=== PATIENT | male | born 1980 | race African-American/Black ===

== ENCOUNTER 2021-04-09 16:16 | Emergency (ER) | payer BC, OTHER ==
[2021-04-09 16:43] VITALS: TEMP 98.3
--- NOTE | 2021-04-09 17:21 | ED ---
Headache HPI - General Chief Complaint: Headache Stated Complaint: Headache Time Seen by Provider: 04/09/21 17:06 Source: patient, RN notes reviewed Mode of arrival: ambulatory Limitations: no limitations - History of Present Illness Initial Comments: Is a 40-year-old male presents emergency Department with chief complaint of headaches. Patient's been having frequent headaches last 2 weeks. Denies any change in medications. Denies any neck pain. Patient states he was diagnosed with cluster headaches in the past these feels different. He states he wakes up from after work states she has taken ibuprofen which alleviated symptoms has occasional nausea without vomiting no focal weakness no fevers or chills no blurred vision no other complaints. - Related Data Home Medications Medication Instructions Recorded Confirmed No Known Home Medications 04/21/16 04/21/16 Allergies Allergy/AdvReac Type Severity Reaction Status Date / Time No Known Allergies Allergy Verified 04/09/21 16:43 Review of Systems ROS Statement: Those systems with pertinent positive or pertinent negative responses have been documented in the HPI. ROS Other: All systems not noted in ROS Statement are negative. Past Medical History Past Medical History: Hypertension Additional Past Medical History / Comment(s): "migraines" History of Any Multi-Drug Resistant Organisms: None Reported Past Surgical History: Orthopedic Surgery Past Psychological History: Schizophrenia Smoking Status: Current every day smoker Past Alcohol Use History: Occasional Past Drug Use History: Marijuana General Exam Limitations: no limitations General appearance: alert, in no apparent distress Head exam: Present: atraumatic, normocephalic, normal inspection Eye exam: Present: normal appearance, PERRL, EOMI. Absent: scleral icterus, conjunctival injection, periorbital swelling ENT exam: Present: normal exam, normal oropharynx, mucous membranes moist Neck exam: Present: normal inspection, full ROM. Absent: tenderness, meningismus, lymphadenopathy Respiratory exam: Present: normal lung sounds bilaterally. Absent: respiratory distress, wheezes, rales, rhonchi, stridor Cardiovascular Exam: Present: regular rate, normal rhythm, normal heart sounds. Absent: systolic murmur, diastolic murmur, rubs, gallop, clicks Neurological exam: Present: alert, oriented X3, CN II-XII intact, reflexes normal. Absent: motor sensory deficit Skin exam: Present: warm, dry, intact, normal color. Absent: rash Course Vital Signs 06/16/21 16:39 Temperature 98.3 F Pulse Rate 84 Respiratory 20 Rate Blood Pressure 126/85 O2 Sat by Pulse 95 Oximetry Medical Decision Making - Medical Decision Making 32-year-old male presents emergency from for frequent headaches. Symptoms seemed related to work and stress as this is when symptoms started. Patient CT is negative. Patient will follow-up with urology return parameters were discussed. Disposition Clinical Impression: Headache Disposition: HOME SELF-CARE Condition: Stable Instructions (If sedation given, give patient instructions): Acute Headache (ED) Additional Instructions: Please return to the Emergency Department if symptoms worsen or any other concerns. Is patient prescribed a controlled substance at d/c from ED?: No Referrals: Naresh Mobley MD [Primary Care Provider] - 1-2 days Roger Madden MD [REFERRING] - 1-2 days Time of Disposition: 17:57
--- NOTE | 2021-04-09 17:45 | CT ---
EXAMINATION TYPE: CT brain wo con DATE OF EXAM: 04/09/2021 COMPARISON: CT brain 02/03/2013 HISTORY: Right sided headache without injury CT DLP: 1247.4 mGycm. Automated Exposure Control for Dose Reduction was Utilized. TECHNIQUE: CT scan of the head is performed without contrast. FINDINGS: There is no acute intracranial hemorrhage, mass effect, or midline shift identified. The ventricles and sulci are within normal limits in size. The globes are intact and the visualized sin uses are remarkable for mucus retention cyst in the right maxillary sinus. IMPRESSION: No acute intracranial hemorrhage, mass effect, or midline shift is seen.
[2021-04-09 18:46] VITALS: BP 133/92; PULSE 77; RESP 18
== END 2021-04-09 18:46 | disposition home or self-care (01) ==
LOC: EC 16:16
DX: R51.9 Headache, unspecified (principal); R11.0 Nausea; I10 Essential (primary) hypertension; F17.200 Nicotine dependence, unspecified, uncomplicated; Z86.69 Personal history of other diseases of the nervous system and sense organs
CPT/HCPCS: 70450; 99284

== ENCOUNTER 2021-06-29 11:37 | Emergency (ER) | payer OTHER ==
[2021-06-29 11:43] VITALS: PULSE 66; RESP 18; TEMP 97.7
--- NOTE | 2021-06-29 11:58 | ED ---
General Adult HPI - General Chief complaint: Psychiatric Symptoms Stated complaint: EPS eval Time Seen by Provider: 06/29/21 11:40 Source: patient, RN notes reviewed, old records reviewed Mode of arrival: ambulatory Limitations: no limitations - History of Present Illness Initial comments: This is a 41-year-old male presents emergency department stating that he was in a relationship for approximately 3 years and it ended about 4 months ago. Patient states since that time he has tried to engage in relation with other women in though he feels as though they are coming on to any train he tries to make any sexual advance they are not responding. Patient came in because he is wondering if he is doing something wrong and wants some help in trying to become involved in a future sexual relationship with a woman. Patient states he has no desire to hurt any women or he does not want to expose himself to anyone he does not want to force himself on anyone. Patient states she's just looking for some advice as to how to have better luck with women in particularly better luck with women relative to sex. Patient has no suicidal homicidal ideations. Patient has no physical complaints. Patient states he try this week to see his primary medical care doctor but he wasn't open so today he decided to come in here but he understands that there is probably nothing we can do for him he will follow- up as an outpatient. Patient definitively says he is not trying to himself or anyone else in any way. - Related Data Home Medications Medication Instructions Recorded Confirmed No Known Home Medications 04/21/16 04/21/16 Allergies Allergy/AdvReac Type Severity Reaction Status Date / Time No Known Allergies Allergy Verified 06/29/21 11:39 Review of Systems ROS Statement: Those systems with pertinent positive or pertinent negative responses have been documented in the HPI. ROS Other: All systems not noted in ROS Statement are negative. Past Medical History Past Medical History: Hypertension Additional Past Medical History / Comment(s): "migraines" History of Any Multi-Drug Resistant Organisms: None Reported Past Surgical History: Orthopedic Surgery Past Psychological History: Schizophrenia Smoking Status: Current every day smoker Past Alcohol Use History: Occasional Past Drug Use History: Marijuana General Exam - General Exam Comments Initial Comments: GENERAL: Patient is well-developed and well-nourished. Patient is nontoxic and well- hydrated and is in no acute distress. EYES: The sclera were anicteric and conjunctiva were pink and moist. Extraocular movements were intact and pupils were equal round and reactive to light. Eyelids were unremarkable. SKIN: Skin is clear with no lesions or rashes and otherwise unremarkable. NEUROLOGIC: Patient is alert and oriented x3. Cranial nerves II through XII are grossly intact. Motor and sensory are also intact. Normal speech, volume and content. Symmetrical smile. MUSCULOSKELETAL: Normal extremities with adequate strength and full range of motion. LYMPHATICS: No significant lymphadenopathy is noted PSYCHIATRIC: Normal psychiatric evaluation. Limitations: no limitations Course Vital Signs 06/29/21 11:39 Temperature 97.7 F Pulse Rate 66 Respiratory 18 Rate O2 Sat by Pulse 100 Oximetry Disposition Clinical Impression: Problem with sexual relationship Disposition: HOME SELF-CARE Condition: Good Instructions (If sedation given, give patient instructions): Safe Sex (ED) Is patient prescribed a controlled substance at d/c from ED?: No Referrals: Naresh Mobley MD [Primary Care Provider] - 1-2 days
== END 2021-06-29 11:59 | disposition home or self-care (01) ==
LOC: EC 11:37
DX: Z63.0 Problems in relationship with spouse or partner (principal); I10 Essential (primary) hypertension; F17.200 Nicotine dependence, unspecified, uncomplicated
CPT/HCPCS: 99283

== ENCOUNTER 2022-07-29 14:54 | Emergency (ER) | payer OTHER ==
--- NOTE | 2022-07-29 16:57 | ED ---
General Adult HPI - General Chief complaint: Psychiatric Symptoms Stated complaint: Mental Health Time Seen by Provider: 07/29/22 15:40 Source: patient, RN notes reviewed, old records reviewed Mode of arrival: ambulatory Limitations: no limitations - History of Present Illness Initial comments: This is a 42-year-old male presents emergency department stating that he got out of senior care for 2 weeks. Patient states he has been living at a sister's place in the been fighting every day and he does not want. Patient states she kicked him out of the house he has no place to go. Patient states he slipped into the shoulders been unable to find a custodial that'll take him. Patient states he is been having suicidal thoughts with decided come the emergency department. Patient also states that he feels that if he keeps arguing with his sister he'll eventually want to kill her so he would rather kill himself. Patient denies any physical complaints today. Patient denies any drinking or drug use. - Related Data Home Medications Medication Instructions Recorded Confirmed No Known Home Medications 04/21/16 07/29/22 Allergies Allergy/AdvReac Type Severity Reaction Status Date / Time No Known Allergies Allergy Verified 07/29/22 17:05 Review of Systems ROS Statement: Those systems with pertinent positive or pertinent negative responses have been documented in the HPI. ROS Other: All systems not noted in ROS Statement are negative. Past Medical History Past Medical History: Hypertension Additional Past Medical History / Comment(s): "migraines" History of Any Multi-Drug Resistant Organisms: None Reported Past Surgical History: Orthopedic Surgery Past Psychological History: Schizophrenia Smoking Status: Current every day smoker Past Alcohol Use History: Occasional Past Drug Use History: Marijuana General Exam - General Exam Comments Initial Comments: GENERAL: Patient is well-developed and well-nourished. Patient is nontoxic and well- hydrated and is in no acute distress. ENT: Neck is soft and supple. No significant lymphadenopathy is noted. Oropharynx is clear. Moist mucous membranes. Neck has full range of motion without eliciting any pain. EYES: The sclera were anicteric and conjunctiva were pink and moist. Extraocular movements were intact and pupils were equal round and reactive to light. Eyelids were unremarkable. PULMONARY: Unlabored respirations. Good breath sounds bilaterally. No audible rales rhonchi or wheezing was noted. CARDIOVASCULAR: There is a regular rate and rhythm without any murmurs gallops or rubs. ABDOMEN: Soft and nontender with normal bowel sounds. SKIN: Skin is clear with no lesions or rashes and otherwise unremarkable. NEUROLOGIC: Patient is alert and oriented x3. Cranial nerves II through XII are grossly intact. Motor and sensory are also intact. Normal speech, volume and content. Symmetrical smile. MUSCULOSKELETAL: Normal extremities with adequate strength and full range of motion. LYMPHATICS: No significant lymphadenopathy is noted PSYCHIATRIC: States he is having suicidal thoughts and he is afraid he might at some time in the future want to kill his sister Limitations: no limitations Course Vital Signs 07/29/22 07/29/22 15:52 18:46 Temperature 98 F Pulse Rate 94 86 Respiratory 16 18 Rate Blood Pressure 141/90 136/82 O2 Sat by Pulse 100 99 Oximetry Medical Decision Making - Medical Decision Making EPS evaluated the patient and in agreement with the patient patient felt comfortable going home with resources. - Lab Data Lab Results 07/29/22 Range/Units 19:23 Urine Opiates Screen Not Detected (NotDetected) Ur Oxycodone Screen Not Detected (NotDetected) Urine Methadone Screen Not Detected (NotDetected) Ur Propoxyphene Screen Not Detected (NotDetected) Ur Barbiturates Screen Not Detected (NotDetected) U Tricyclic Antidepress Not Detected (NotDetected) Ur Phencyclidine Scrn Not Detected (NotDetected) Ur Amphetamines Screen Not Detected (NotDetected) U Methamphetamines Scrn Not Detected (NotDetected) U Benzodiazepines Scrn Not Detected (NotDetected) Urine Cocaine Screen Detected H (NotDetected) U Marijuana (THC) Screen Detected H (NotDetected) Disposition Clinical Impression: Cocaine abuse, Situational depression Disposition: HOME SELF-CARE Is patient prescribed a controlled substance at d/c from ED?: No Referrals: Naresh Mobley MD [Primary Care Provider] - 1-2 days Time of Disposition: 20:08
[2022-07-29 18:47] VITALS: RESP 18
[2022-07-29 19:50] LABS: Amphetamine Screen,Urine Not Detected (NotDetected); Barbiturate Screen,Urine Not Detected (NotDetected); Benzodiazepines Screen,Urine Not Detected (NotDetected); Cocaine Screen,Urine Detected (NotDetected); Methadone Screen, Urine Not Detected (NotDetected); Opiate Screen,Urine Not Detected (NotDetected); Oxycodone Screen, Urine Not Detected (NotDetected); Phencyclidine Screen,Urine Not Detected (NotDetected); Tricyclic Antidepressant,Urine Not Detected (NotDetected); Urn Cannabinoid Scrn Detected (NotDetected)
[2022-07-29 20:47] VITALS: BP 147/86; PULSE 74; TEMP 98.3
== END 2022-07-29 20:47 | disposition home or self-care (01) ==
LOC: EC 14:54
DX: F14.10 Cocaine abuse, uncomplicated (principal); F43.21 Adjustment disorder with depressed mood; I10 Essential (primary) hypertension; F17.200 Nicotine dependence, unspecified, uncomplicated
CPT/HCPCS: 80306; 82075; 99284

== ENCOUNTER 2023-02-06 09:36 | Emergency (ER) | payer OTHER ==
[2023-02-06 09:49] VITALS: BP 150/84; PULSE 80; RESP 18; TEMP 98
--- NOTE | 2023-02-06 10:23 | ED ---
Headache HPI - General Chief Complaint: Headache Stated Complaint: Headache Time Seen by Provider: 02/06/23 09:52 Source: patient, RN notes reviewed, old records reviewed Mode of arrival: ambulatory Limitations: no limitations - History of Present Illness Initial Comments: This is a nontoxic-appearing 42-year-old male that presents to the emergency room with complaints of a headache on and off for the past 4 days. Denies any fevers. States that he is under a lot of stress and has not been sleeping well. Having a lot of nightmares. States he did take Tylenol prior to arrival which has resolved his headache. No other symptoms. Patient states he has been seen at [facility] in the past for his stress. Does not take any medicine a daily basis. No alcohol or drug use. Denies any suicidal or homicidal ideations. MD Complaint: headache -: days(s) (4) Onset Description: now resolved Severity scale (1-10): 0 Quality: aching Consistency: intermittent Worsens With: other (stress) Treatments Prior to Arrival: Acetaminophen - Related Data Previous Rx's Medication Instructions Recorded Ibuprofen [Motrin] 600 mg PO Q8HR PRN #30 tab 02/06/23 Allergies Allergy/AdvReac Type Severity Reaction Status Date / Time No Known Allergies Allergy Verified 02/06/23 09:49 Review of Systems ROS Statement: Those systems with pertinent positive or pertinent negative responses have been documented in the HPI. ROS Other: All systems not noted in ROS Statement are negative. Past Medical History Past Medical History: Hypertension Additional Past Medical History / Comment(s): "migraines" History of Any Multi-Drug Resistant Organisms: None Reported Past Surgical History: Orthopedic Surgery Past Psychological History: Schizophrenia Smoking Status: Current every day smoker Past Alcohol Use History: Occasional Past Drug Use History: Marijuana General Exam Limitations: no limitations General appearance: alert, in no apparent distress Head exam: Present: atraumatic, normocephalic, normal inspection Eye exam: Present: normal appearance. Absent: scleral icterus, conjunctival injection, periorbital swelling, periorbital tenderness Neck exam: Present: full ROM. Absent: tenderness, meningismus, lymphadenopathy Respiratory exam: Absent: respiratory distress, accessory muscle use Cardiovascular Exam: Present: regular rate GI/Abdominal exam: Present: soft Back exam: Absent: tenderness Neurological exam: Present: alert, oriented X3, CN II-XII intact Expanded Patient oriented to: Present: person, place, time Speech: Present: fluid speech Cranial nerves: EOM's Intact: Normal, Gag Reflex: Normal, Nystagmus: Normal Cerebellar function: Finger to Nose: Normal, Heel to [place]: Normal Motor strength exam: RUE: 5, LUE: 5, RLE: 5, LLE: 5 Eye Response: (4) open spontaneously Motor Response: (6) obeys commands Verbal Response: (5) oriented [place] Total: 15 Psychiatric exam: Present: normal affect, normal mood. Absent: flat affect, homicidal ideation, suicidal ideation Skin exam: Present: warm, dry, normal color. Absent: cyanosis, diaphoretic, petechiae, pallor Course Vital Signs 02/06/23 02/06/23 09:45 10:40 Temperature 98 F 98 F Pulse Rate 80 80 Respiratory 18 18 Rate Blood Pressure 150/84 150/84 O2 Sat by Pulse 100 100 Oximetry Medical Decision Making - Medical Decision Making Patient presents with a headache on and off for the past 4 days. States headache is similar to previous headaches. States he took Motrin prior to arrival with resolution. States that he is under a lot of stress at work and having a lot of nightmares whish may be the cause o f his headaches. Not sleeping well. Patient denies any homicidal or suicidal ideations. No fevers. Denies any alcohol or drug use. He was offered to speak with [facility] nursing staff and declined states that he will follow up with [facility] and his primary care doctor for his stress. Patient requesting just a prescription for Motrin and discharge. Patient is alert and oriented, denies any homicidal or suicidal ideations. No focal neurological deficits. No fevers. Was pt. sent in by a medical professional or institution (, PA, SUPERVISOR [employer]MPING, urgent care, hospital, or senior living...) When possible be specific @ -No Did you speak to anyone other than the patient for history (EMS, parent, family, police, friend...)? What history was obtained from this source @ -No Did you review nursing and triage notes (agree or disagree)? Why? @ -I reviewed and agree with nursing and triage notes Were old charts reviewed (outside hosp., previous admission, EMS record, old EKG, old radiological studies, urgent care reports/EKG's, senior living records)? Report findings @ -No old charts were reviewed Differential Diagnosis (chest pain, altered mental status, abdominal pain women, abdominal pain men, vaginal bleeding, weakness, fever, dyspnea, syncope, headache, dizziness, GI bleed, back pain, seizure, CVA, palpatations, mental health, musculoskeletal)? @ -Differential Headache: Migraine, tension, cluster, carbon monoxide, central venous thrombosis, pension karma temporal arteritis, acute closure glaucoma, intercranial hemorrhage, ma stoiditis, sinusitis, head injury, this is not meant to be an all-inclusive list. EKG interpreted by me (3pts min.). @ -n/a X-rays interpreted by me (1pt min.). @ -None done CT interpreted by me (1pt min.). @ -None done U/S interpreted by me (1pt. min.). @ -None done What testing was considered but not performed or refused? (CT, X-rays, U/S, labs)? Why? @ -None What meds were considered but not given or refused? Why? @ -Patient was offered Tylenol and declined states headache has resolved. Did you discuss the management of the patient with other professionals (professionals i.e. , PA, SU[employer], lab, RT, psych nurse, web content & social media manager, manager environmental health, teacher, corporate security officer, lining caser)? Give summary @ -No Was smoking cessation discussed for >3mins.? @ -No Was critical care preformed (if so, how long)? @ -No Were there social determinants of health that impacted care today? How? (Homelessness, low income, unemployed, alcoholism, drug addiction, transportation, low edu. Level, literacy, decrease access to med. care, fpc, rehab)? @ -[No] Was there de-escalation of care discussed even if they declined (Discuss DNR or withdrawal of care, Hospice)? DNR status @ -[No] What co-morbidities impacted this encounter? (DM, HTN, Smoking, COPD, CAD, Cancer, CVA, ARF, Chemo, Hep., AIDS, mental health diagnosis, sleep apnea, morbid obesity)? @ -Migraine, hypertension Was patient admitted / discharged? Hospital course, mention meds given and route, prescriptions, significant lab abnormalities, going to OR and other pertinent info. @ -Discharged Undiagnosed new problem with uncertain prognosis? @ -[No] Drug Therapy requiring intensive monitoring for toxicity (Heparin, Nitro, Insulin, Cardizem)? @ -[No] Were any procedures done? @ -[No] Diagnosis/symptom? @ -Headache resolved Acute, or Chronic, or Acute on Chronic? @ -Acute Uncomplicated (without systemic symptoms) or Complicated (systemic symptoms)? @ -Uncomplicated Side effects of treatment? @ -[No] Exacerbation, Progression, or Severe Exacerbation? @ -[No] Poses a threat to life or bodily function? How? (Chest pain, [place], [place], pneumonia, PE, COPD, DKA, ARF, appy, cholecystitis, CVA, Diverticulitis, Homicidal, Suicidal, threat to staff... and all critical care pts) @ -[No] Disposition Clinical Impression: Headache Disposition: HOME SELF-CARE Condition: Good Instructions (If sedation given, give patient instructions): Acute Headache (ED) Additional Instructions: Increase your fluid intake. Take Tylenol and/or Motrin as needed for any headaches. Follow-up with community mental health with your primary care doctor regarding your stress and anxiety. Prescriptions: Ibuprofen [Motrin] 600 mg PO Q8HR PRN #30 tab PRN Reason: Pain Is patient prescribed a controlled substance at d/c from ED?: No Referrals: Naresh Mobley MD [Primary Care Provider] - 1-2 days Time of Disposition: 10:23
== END 2023-02-06 11:00 | disposition home or self-care (01) ==
LOC: EC 09:36
DX: R51.9 Headache, unspecified (principal); I10 Essential (primary) hypertension; F17.200 Nicotine dependence, unspecified, uncomplicated; F12.90 Cannabis use, unspecified, uncomplicated
CPT/HCPCS: 99283

== ENCOUNTER 2023-02-14 07:36 | Emergency (ER) | payer OTHER ==
[2023-02-14 07:41] VITALS: TEMP 98.1
[2023-02-14] MEDS ORDERED: DEXAMETHASONE SOD PHOSPHATE 10 MG/ML 1 ML VIAL IVP STA (07:46)
[2023-02-14] MEDS ORDERED: METOCLOPRAMIDE 5 MG/ML 2 ML VIAL IVP STA (07:46)
[2023-02-14] MEDS ORDERED: KETOROLAC 15 MG/ML 1 ML VIAL IVP STA (07:46)
[2023-02-14] MEDS ORDERED: diphenhydrAMINE 50 MG/ML 1 ML VIAL IVP STA (07:46)
[2023-02-14] MEDS ORDERED: SODIUM CHLORIDE 0.9% 1,000 ML IV STA (07:46)
--- NOTE | 2023-02-14 07:52 | ED ---
Headache HPI - General Chief Complaint: Headache Stated Complaint: Headache Time Seen by Provider: 02/14/23 07:40 Source: patient, RN notes reviewed Mode of arrival: ambulatory Limitations: no limitations - History of Present Illness Initial Comments: This is a 42-year-old male who presents to the emergency department for a headache. Patient states that whenever he goes to bed at night, he goes to bed with headaches. States that this has been going on since last summer and he has a history of migraines. He would not describe this as the worst headache of his life. Patient is making statements like he feels like someone is trying to kill him in his sleep and he does not know what is going on. Also states that he feels like people want him to sign over all of his information. He is also rambling on and making other unidentifiable statements. States that he purchased a bottle of 150 pills [id number] to treat his pain, and he took all of them within a week. Patient does not recall what these were. He has associated nausea and photophobia. States that the pain is largely on the right side of his head in the temporal region. Denies any fevers, chills, sore throat, cough, dyspnea, chest pain, palpitations, abdominal pain, vomiting, diarrhea, or back pain. MD Complaint: headache Location: right - Related Data Previous Rx's Medication Instructions Recorded Ibuprofen [Motrin] 600 mg PO Q8HR PRN #30 tab 02/06/23 SUMAtriptan succinate 100 mg PO DIRECTED PRN #10 02/14/23 tablet Allergies Allergy/AdvReac Type Severity Reaction Status Date / Time No Known Allergies Allergy Verified 02/14/23 07:40 Review of Systems ROS Statement: Those systems with pertinent positive or pertinent negative responses have been documented in the HPI. ROS Other: All systems not noted in ROS Statement are negative. Past Medical History Past Medical History: Hypertension Additional Past Medical History / Comment(s): "migraines" History of Any Multi-Drug Resistant Organisms: None Reported Past Surgical History: Orthopedic Surgery Past Psychological History: Schizophrenia Smoking Status: Current every day smoker Past Alcohol Use History: Occasional Past Drug Use History: Marijuana General Exam Limitations: no limitations General appearance: alert, in distress Head exam: Present: atraumatic, normocephalic, normal inspection Eye exam: Present: normal appearance, PERRL, EOMI. Absent: scleral icterus, conjunctival injection, periorbital swelling Respiratory exam: Present: normal lung sounds bilaterally. Absent: respiratory distress, wheezes, rales, rhonchi, stridor Cardiovascular Exam: Present: regular rate, normal rhythm, normal heart sounds. Absent: systolic murmur, diastolic murmur, rubs, gallop, clicks Neurological exam: Present: alert, oriented X3, CN II-XII intact Psychiatric exam: Present: normal affect, normal mood Skin exam: Present: warm, dry, intact, normal color. Absent: rash Course Vital Signs 02/14/23 02/14/23 02/14/23 07:37 08:47 10:00 Temperature 98.1 F Pulse Rate 87 61 67 Respiratory 18 20 16 Rate Blood Pressure 152/83 119/76 107/74 O2 Sat by Pulse 97 100 99 Oximetry 02/14/23 10:53 Temperature Pulse Rate 74 Respiratory 20 Rate Blood Pressure 130/80 O2 Sat by Pulse 100 Oximetry Medical Decision Making - Medical Decision Making This is a 42-year-old male who presents to the emergency department for headaches. Was pt. sent in by a medical professional or institution? @ -No Did you speak to anyone other than the patient for history? @ -No Did you review nursing and triage notes? @ -Yes, and I agree, it is accurate with regards to the patient's symptoms. Were old charts reviewed? @ -No Differential Diagnosis? @ -Differential Headache: Migraine, tension, cluster, carbon monoxide, central venous thrombosis, [employer] temporal arteritis, acute closure glaucoma, intercranial hemorrhage, mastoiditis, sinusitis, head injury, this is not meant to be an all-inclusive list. What testing was considered but not performed? (CT, X-rays, U/S, labs)? Why? @ -None What meds were considered but not given? Why? @ -None Did you discuss the management of the patient with other professionals? @ -No Did you reconcile home meds? @ -No Was smoking cessation discussed for >3mins.? @ -No Was critical care preformed (if so, how long)? @ -No Were there social determinants of health that impacted care today? How? (Homelessness, low income, unemployed, alcoholism, drug addiction, transportation, low edu. Level, literacy, decrease access to med. care, prison, rehab)? @ -No Was there de-escalation of care discussed even if they declined? (Discuss DNR or withdrawal of care, Hospice)? @ -No What co-morbidities impacted this encounter? (DM, HTN, Smoking, COPD, CAD, Cancer, CVA, Hep., AIDS, mental health diagnosis, sleep apnea, morbid obesity)? @ -Migraines, HTN Was patient admitted / discharged? @ -Discharged. Lab work obtained and found to be nonactionable. He was treated with a migraine cocktail consisting of Toradol, Reglan, Decadron, and Benadryl, along with a 1L bolus of IV fluids. Pain entirely resolved following medication administration and patient requested discharge home. He was no longer making bizarre statements as stated in the HPI. States that he was just saying that because of how bad his pain was. He does follow [facility]. Denies any suicidal or homicidal ideations. Also denies any auditory or visual hallucinations. Patient declined EPS evaluation in the emergency department. He was given a prescription for sumatriptan for possible migraines. Dosing instructions for the sumatriptan and were reviewed. Advised he otherwise follow-up with his primary care provider for reevaluation of ongoing symptoms. Undiagnosed new problem with uncertain prognosis? @ -None Drug Therapy requiring intensive monitoring for toxicity (Heparin, Nitro, Insulin, Cardizem)? @ -None Were any procedures done? @ -None Diagnosis/symptom? @ -Headache Acute, or Chronic, or Acute on Chronic? @ -Acute Uncomplicated (without systemic symptoms) or Complicated (systemic symptoms)? @ -Uncomplicated Side effects of treatment? @ -None Exacerbation, Progression, or Severe Exacerbation] @ -Not applicable Poses a threat to life or bodily function? @ -No Return precautions reviewed in depth, the patient is instructed to return to the emergency department with any new, worsening, or concerning symptoms. Patient verbalized understanding. This case was discussed in detail with the attending ED physician, Dr. Cox. Presentation, findings, and treatment plan discussed in detail as well. - Lab Data Result diagrams: 02/14/23 08:08 02/14/23 08:08 Lab Results 02/14/23 02/14/23 02/14/23 Range/Units 08:08 08:08 10:15 WBC 5.7 (3.8-10.6) k/uL RBC 5.79 (4.30-5.90) m/uL Hgb 13.5 (13.0-17.5) gm/dL Hct 45.1 (39.0-53.0) % MCV 77.8 L (80.0-100.0) fL MCH 23.4 L (25.0-35.0) pg MCHC 30.1 L (31.0-37.0) g/dL RDW 14.3 (11.5-15.5) % Plt Count 220 (150-450) k/uL MPV 7.5 Neutrophils % 57 % Lymphocytes % 32 % Monocytes % 6 % Eosinophils % 1 % Basophils % 0 % Neutrophils # 3.3 (1.3-7.7) k/uL Lymphocytes # 1.8 (1.0-4.8) k/uL Monocytes # 0.4 (0-1.0) k/uL Eosinophils # 0.1 (0-0.7) k/uL Basophils # 0.0 (0-0.2) k/uL Hypochromasia Slight ESR 3 (0-15) mm/hr Sodium 138 (137-145) mmol/L Potassium 4.1 (3.5-5.1) mmol/L Chloride 105 (98-107) mmol/L Carbon Dioxide 27 (22-30) mmol/L Anion Gap 6 mmol/L BUN 9 (9-20) mg/dL Creatinine 0.78 (0.66-1.25) mg/dL Est GFR (CKD-EPI)AfAm >90 (>60 ml/min/1.73 sqM) Est GFR (CKD-EPI)NonAf >90 (>60 ml/min/1.73 sqM) Glucose 91 (74-99) mg/dL Calcium 9.3 (8.4-10.2) mg/dL Total Bilirubin 0.8 (0.2-1.3) mg/dL AST 23 (17-59) U/L ALT 20 (4-49) U/L Alkaline Phosphatase 53 (38-126) U/L Total Protein 7.4 (6.3-8.2) g/dL Albumin 4.2 (3.5-5.0) g/dL TSH 0.761 (0.465-4.680) mIU/L Urine Color Light Yellow Urine Appearance Clear (Clear) Urine pH 6.0 (5.0-8.0) Ur Specific [place] 1.006 (1.001-1.035) Urine Protein Trace H (Negative) Urine Glucose (UA) Negative (Negative) Urine Ketones Negative (Negative) Urine Blood Negative (Negative) Urine Nitrite Negative (Negative) Urine Bilirubin Negative (Negative) Urine Urobilinogen <2.0 (<2.0) mg/dL Ur Leukocyte Esterase Negative (Negative) Salicylates <1.0 mg/dL Urine Opiates Screen Not Detected (NotDetected) Ur Oxycodone Screen Not Detected (NotDetected) Urine Methadone Screen Not Detected (NotDetected) Ur Propoxyphene Screen Not Detected (NotDetected) Acetaminophen <10.0 ug/mL Ur Barbiturates Screen Not Detected (NotDetected) U Tricyclic Antidepress Not Detected (NotDetected) Ur Phencyclidine Scrn Not Detected (NotDetected) Ur Amphetamines Screen Not Detected (NotDetected) U Methamphetamines Scrn Not Detected (NotDetected) U Benzodiazepines Scrn Not Detected (NotDetected) Urine Cocaine Screen Not Detected (NotDetected) U Marijuana (THC) Screen Detected H (NotDetected) Disposition Clinical Impression: Migraine headache Disposition: HOME SELF-CARE Instructions (If sedation given, give patient instructions): Migraine Headache (ED) Additional Instructions: Return to the emergency department with any new, worsening, or concerning symptoms. Alternate with ibuprofen and Tylenol as needed for pain relief. If you develop another headache, take a tablet of sumatriptan at the onset of symptoms. If pain persists at the 2 hour mekhi, you may repeat the dose. Do not take more than 2 tablets in 24 hours. Follow up with your primary care provider in 1-2 days. Prescriptions: SUMAtriptan succinate 100 mg PO DIRECTED PRN #10 tablet PRN Reason: Migraine Headache Is patient prescribed a controlled substance at d/c from ED?: No Referrals: Naresh Mobley MD [Primary Care Provider] - 1-2 days
[2023-02-14 08:21] LABS: Basophils % (A) 0 %; Eosinophils # (A) 0.1 k/uL (0-0.7); Eosinophils % (A) 1 %; HCT 45.1 % (39.0-53.0); HGB 13.5 gm/dL (13.0-17.5); Hypochromasia Slight; Lymphocytes # (A) 1.8 k/uL (1.0-4.8); Lymphocytes % (A) 32 %; MCH 23.4 pg (25.0-35.0); MCHC 30.1 g/dL (31.0-37.0); MCV 77.8 fL (80.0-100.0); Mean Platelet Volume 7.5; Monocytes # (A) 0.4 k/uL (0-1.0); Monocytes % (A) 6 %; Neutrophils # (A) 3.3 k/uL (1.3-7.7); Neutrophils % (A) 57 %; Platelet Count 220 k/uL (150-450); RBC 5.79 m/uL (4.30-5.90); RDW 14.3 % (11.5-15.5); WBC 5.7 k/uL (3.8-10.6)
[2023-02-14 08:31] LABS: ALT 20 U/L (4-49); AST 23 U/L (17-59); Acetaminophen <10.0 ug/mL; African American GFR (CKD) >90 (>60 ml/min/1.73 sqM); Albumin 4.2 g/dL (3.5-5.0); Alkaline Phosphatase 53 U/L (38-126); Anion Gap 6 mmol/L; Blood Urea Nitrogen 9 mg/dL (9-20); Calcium 9.3 mg/dL (8.4-10.2); Carbon Dioxide 27 mmol/L (22-30); Chloride 105 mmol/L (98-107); Glucose 91 mg/dL (74-99); Non-African American GFR(CKD) >90 (>60 ml/min/1.73 sqM); Potassium 4.1 mmol/L (3.5-5.1); Salicylate <1.0 mg/dL; Sodium 138 mmol/L (137-145); Total Bilirubin 0.8 mg/dL (0.2-1.3); Total Protein 7.4 g/dL (6.3-8.2)
[2023-02-14] MEDS ORDERED: ONDANSETRON 4 MG ODT STARTER PACK 2 TAB BTL PO STA (09:44)
[2023-02-14] MEDS ORDERED: IBUPROFEN 600 MG STARTER PACK 4 TAB BTL PO STA (09:44)
[2023-02-14 10:30] LABS: Appearance,Urine Clear (Clear); Bilirubin,Urine Negative (Negative); Blood,Urine Negative (Negative); Color,Urine Light Yellow; Glucose,Urine (UA) Negative (Negative); Ketones,Urine Negative (Negative); Leukocyte Esterase,Urine Negative (Negative); Nitrite,Urine Negative (Negative); Protein,Urine Trace (Negative); Specific Gravity,Urine 1.006 (1.001-1.035); Urobilinogen,Urine <2.0 mg/dL (<2.0)
[2023-02-14 10:39] LABS: Amphetamine Screen,Urine Not Detected (NotDetected); Benzodiazepines Screen,Urine Not Detected (NotDetected); Cocaine Screen,Urine Not Detected (NotDetected); Methadone Screen, Urine Not Detected (NotDetected); Opiate Screen,Urine Not Detected (NotDetected); Phencyclidine Screen,Urine Not Detected (NotDetected); Tricyclic Antidepressant,Urine Not Detected (NotDetected); Urn Cannabinoid Scrn Detected (NotDetected)
[2023-02-14 10:40] LABS: Barbiturate Screen,Urine Not Detected (NotDetected); Oxycodone Screen, Urine Not Detected (NotDetected)
[2023-02-14 10:57] VITALS: BP 130/80; PULSE 74; RESP 20
[2023-02-14 11:30] LABS: Erythrocyte Sedimentation Rate 3 mm/hr (0-15)
[2023-02-14 15:00] LABS: C Reactive Protein <0.5 mg/dL (<1.0)
== END 2023-02-14 10:57 | disposition home or self-care (01) ==
LOC: EC 07:36
DX: G43.909 Migraine, unspecified, not intractable, without status migrainosus (principal); I10 Essential (primary) hypertension; F17.200 Nicotine dependence, unspecified, uncomplicated; F12.90 Cannabis use, unspecified, uncomplicated
CPT/HCPCS: 36415; 80053; 85652; 84443; 85025; 86140; 81003; 80306; 80143; 80179; 99283; 96374; 96375 ×3; 96361; J1200; J1100; J2765; J1885; S0119